=== PATIENT | female | born 1990 | race African-American/Black ===

== ENCOUNTER 2017-05-31 01:22 | Emergency (ER) | payer OTHER ==
[~2017-05-31] VITALS: Ht 157.5 cm; Wt 76.0 kg
[2017-05-31] MEDS ORDERED: ONDANSETRON 4MG ODT PO ONE (06:45)
[2017-05-31] MEDS ORDERED: IBUPROFEN 600MG TABLET PO ONE (06:45)
[2017-05-31 07:35] LABS: BASOPHILS % 0.6 % (0.0-2.0); EOSINOPHILS % 0.3 % (0.0-5.0); HEMOGLOBIN. 10.7 g/dL (12.0-16.0); LYMPHOCYTES % 21.7 % (20.0-50.0); MEAN CORPUSCULAR HEMOGLOBIN 27.9 pg (28.0-32.0); MEAN CORPUSCULAR VOLUME 83.5 fL (81.0-99.0); NEUTROPHILS % 72.4 % (40.0-76.0); PLATELET 289 x1000/uL (130-400); RED BLOOD CELL COUNT 3.84 mill/uL (4.2-5.4); RED CELL DISTRIBUTION WIDTH 13.3 % (11.6-14.6)
[2017-05-31 07:49] LABS: CARBON DIOXIDE 23 mEq/L (21-32); CHLORIDE 106 mEq/L (98-107)
[2017-05-31] MEDS ORDERED: FUROSEMIDE 40MG TABLET PO ONE (08:15)
[2017-05-31 08:17] LABS: KETONES URINE NEGATIVE (NEGATIVE); LEUKOCYTE ESTERASE URINE NEGATIVE (NEGATIVE); NITRITE URINE NEGATIVE (NEGATIVE); OCCULT BLOOD URINE NEGATIVE (NEGATIVE); PH URINE 6.5 (4.5-8.0); PROTEIN URINE NEGATIVE (NEGATIVE); SPECIFIC GRAVITY URINE 1.027 (1.005-1.030); UROBILINOGEN URINE 0.2 E.U./dL (0.2-1.0)
[2017-05-31 08:18] LABS: CLARITY URINE CLEAR (CLEAR); COLOR URINE YELLOW (YELLOW)
[2017-05-31 10:27] VITALS: BP 132/67
== END 2017-05-31 10:28 | disposition home or self-care (01) ==
LOC: ER 01:22
DX: R11.10 Vomiting, unspecified (principal); R19.7 Diarrhea, unspecified; S29.012A Strain of muscle and tendon of back wall of thorax, initial encounter; Y93.9 Activity, unspecified; X58.XXXA Exposure to other specified factors, initial encounter; Y92.9 Unspecified place or not applicable; R03.0 Elevated blood-pressure reading, without diagnosis of hypertension; F17.210 Nicotine dependence, cigarettes, uncomplicated; Z98.890 Other specified postprocedural states
CPT/HCPCS: 36415; 71045; 80053; 81003; 81025; 83690; 85025; 93005; 99285; Q0162; Z7610